=== PATIENT | male | born 1960 | race Hispanic/Latino ===

== ENCOUNTER 2023-07-18 20:51 | Inpatient (IN) | payer BC ==
[2023-07-18 21:41] LABS: #Eosinphils 0.1 thou/uL (0.0-0.7); #Monocytes 0.6 thou/uL (0.11-0.59); #Neutrophils 2.6 thou/uL (1.40-6.50); %Basophils 0.7 % (0.0-1.0); %Eosinophils 3.1 % (0.0-10.0); %Lymphocytes 26.4 % (21.0-51.0); %Monocytes 12.2 % (0.0-10.0); %Neutrophils 57.4 % (42.0-75.0); Hematocrit 36.2 % (42.0-52.0); Hemoglobin 12.6 g/dL (14.0-18.0); Mean Corpuscular HGB CONC 34.8 g/dL (32.0-36.0); Mean Corpuscular Hemoglobin 28.6 pg (27.0-31.0); Mean Corpuscular Volume 82.3 fl (78.0-98.0); Mean Platelet Volume 13.1 fL (7.4-10.4); Platelet Count 121 10x3/uL (130-400); RBC Distribution Width 12.7 % (11.5-14.5); White Blood Cell (WBC) Count 4.6 10x3/uL (4.8-10.8)
[2023-07-18 22:04] LABS: Anion Gap 14 mmol/L (10-20); BUN (Urea Nitrogen) 41 mg/dL (8.4-25.7); Calc. Creatinine Clearance 0 mL/min (70-130); Carbon Dioxide 24 mmol/L (23-31); Chloride 92 mmol/L (98-107); Sodium 125 mmol/L (136-145)
[2023-07-18 22:05] LABS: ALT (SGPT) 25 U/L (8-55); AST (SGOT) 18 U/L (5-34); Albumin 3.9 g/dL (3.4-4.8); Alkaline Phosphatase 117 U/L (40-110); Bilirubin, Total 0.4 mg/dL (0.2-1.2); Calcium 9.3 mg/dL (7.8-10.44); Estimated GFR 12; Protein, Total 5.9 g/dL (5.8-8.1)
[2023-07-18 22:11] LABS: Glucose 777 mg/dL (80-115)
[2023-07-18 22:56] LABS: Bacteria/HPF 3+ HPF (None Seen); Bilirubin Negative (Negative); Blood, Urine 3+ (Negative); CAUTI Indications for Culture Dysuria,urgency,freq; Clarity Clear (Clear); Glucose, Urine (Dipstick) Greater than 1000 mg/dL (Negative); Ketone, Urine Negative (Negative); Leukocyte Negative Leu/uL (Negative); Nitrite Negative (Negative); Protein, Urine (Dipstick) Negative (Neg-Trace); RBC/HPF 21-50 HPF (0-3); Specific Gravity, Urine 1.022 (1.002-1.036); Squamous Epithelial None Seen HPF (0-3); Urobilinogen Normal mg/dL (Less than 2); WBC/HPF 0-3 HPF (0-3); pH, Urine 6.5 (5.0-9.0)
[2023-07-18 22:57] LABS: Urine Culture Reflex No No
[2023-07-18] MEDS ORDERED: Sodium Chloride 0.9% 100 ML ONE (23:29)
[2023-07-18] MEDS ORDERED: Cefepime 2 GM VIAL ONE (23:29)
[2023-07-18 23:42] LABS: Actual Bicarbonate (HCO3v) 22.5 mEq/L (22-28); Base Excess -4.1 mEq/L (-2.0 to +3.0); Calcium, Ionized (venous) 1.16 mmol/L (1.16-1.32); Chloride (VBG) 96 mmol/L (98-106); Hematocrit-VBG 38 % (42.0-52.0); Hemoglobin (Hb) 12.8 g/dL (13.1-17.2); Potassium (VBG) 4.16 mmol/L (3.70-5.30); Sodium 128.4 mmol/L (133-146); pH (venous) 7.295 (7.32-7.43)
[2023-07-18] MEDS ORDERED: Sodium Chloride 0.9% 1,000 ML IV SCH (23:45)
[2023-07-18] MEDS ORDERED: Glucagon 1 MG/ML KIT IM PRN (23:54)
[2023-07-18] MEDS ORDERED: HumaLOG 300 UNITS/3 ML VIAL SC PRN (23:54)
[2023-07-18] MEDS ORDERED: Dextrose 5% in Water 1,000 ML IV PRN (23:54)
[2023-07-18] MEDS ORDERED: Dextrose 50% Abboject 50 ML SYRINGE SLOW IVP PRN (23:54)
[2023-07-18] MEDS ORDERED: Senokot S 8.6-50 MG TAB PO PRN (23:55)
[2023-07-18] MEDS ORDERED: Ondansetron ODT 4 MG TAB PO PRN (23:55)
[2023-07-18] MEDS ORDERED: Calcium Carbonate 500 MG ChewTAB PO PRN (23:55)
[2023-07-19 00:02] LABS: Anion Gap 11 mmol/L (10-20); BUN (Urea Nitrogen) 40 mg/dL (8.4-25.7); CK (CPK) 63 U/L (30-200); Calc. Creatinine Clearance 0 mL/min (70-130); Calcium 8.9 mg/dL (7.8-10.44); Carbon Dioxide 23 mmol/L (23-31); Chloride 98 mmol/L (98-107); Estimated GFR 13; Potassium 4.2 mmol/L (3.5-5.1); Sodium 128 mmol/L (136-145)
[2023-07-19 00:06] LABS: Troponin I Less than 0.010 ng/mL (< 0.028)
[2023-07-19 00:09] LABS: Glucose 639 mg/dL (80-115)
[2023-07-19] MEDS ORDERED: Insulin Regular 300 UNITS/3 ML VIAL IVP SCH (00:15)
[2023-07-19] MEDS ORDERED: Insulin Regular 300 UNITS/3 ML VIAL ONE (00:24)
[2023-07-19 00:42] LABS: Hemoglobin A1c Greater than 14.0 % (4.0-6.0)
[2023-07-19] MEDS ORDERED: Acetaminophen 500 MG TAB ONE (01:15)
[2023-07-19 02:51] VITALS: BMI 26.6
[2023-07-19 06:48] LABS: #Eosinphils 0.2 thou/uL (0.0-0.7); #Monocytes 0.5 thou/uL (0.11-0.59); #Neutrophils 2.3 thou/uL (1.40-6.50); %Basophils 0.7 % (0.0-1.0); %Eosinophils 3.4 % (0.0-10.0); %Lymphocytes 31.2 % (21.0-51.0); %Monocytes 11.2 % (0.0-10.0); Hematocrit 33.2 % (42.0-52.0); Hemoglobin 11.5 g/dL (14.0-18.0); Mean Corpuscular HGB CONC 34.6 g/dL (32.0-36.0); Mean Corpuscular Volume 83.8 fl (78.0-98.0); Mean Platelet Volume 12.7 fL (7.4-10.4); Platelet Count 126 10x3/uL (130-400); RBC Distribution Width 12.8 % (11.5-14.5); Red Blood Cell (RBC) Count 3.96 mill/uL (4.70-6.10); White Blood Cell (WBC) Count 4.4 10x3/uL (4.8-10.8)
[2023-07-19 07:20] LABS: Anion Gap 8 mmol/L (10-20); BUN (Urea Nitrogen) 32 mg/dL (8.4-25.7); Calc. Creatinine Clearance 23 mL/min (70-130); Calcium 8.9 mg/dL (7.8-10.44); Carbon Dioxide 24 mmol/L (23-31); Chloride 104 mmol/L (98-107); Estimated GFR 18; Glucose 173 mg/dL (80-115); Potassium 3.8 mmol/L (3.5-5.1); Sodium 132 mmol/L (136-145)
[2023-07-19] MEDS: Famotidine 20 MG TAB PO SCH (08:39)
[2023-07-19] MEDS: Tamsulosin HCl 0.4 MG CAP PO SCH (08:39)
[2023-07-19] MEDS ORDERED: Insulin Glargine 30 UNITS/0.3 ML VIAL SC SCH (09:00)
[2023-07-19] MEDS: HumaLOG 300 UNITS/3 ML VIAL SC PRN ×2 (11:36→16:47)
[2023-07-19] MEDS: Sodium Chloride 0.9% 1,000 ML IV SCH (16:24)
[2023-07-19] MEDS: Insulin Glargine 30 UNITS/0.3 ML VIAL SC SCH (20:56)
[2023-07-19] MEDS: Acetaminophen 325 MG TAB PO PRN (21:35)
[2023-07-20] MEDS: Sodium Chloride 0.9% 1,000 ML IV SCH ×2 (00:30→10:45)
[2023-07-20] MEDS: HumaLOG 300 UNITS/3 ML VIAL SC PRN ×3 (07:01→16:53)
[2023-07-20 07:53] LABS: Anion Gap 10 mmol/L (10-20); BUN (Urea Nitrogen) 14 mg/dL (8.4-25.7); Calc. Creatinine Clearance 56 mL/min (70-130); Calcium 9.1 mg/dL (7.8-10.44); Carbon Dioxide 22 mmol/L (23-31); Chloride 109 mmol/L (98-107); Estimated GFR 54; Glucose 218 mg/dL (80-115); Potassium 4.1 mmol/L (3.5-5.1); Sodium 137 mmol/L (136-145)
[2023-07-20 08:15] VITALS: BP 127/69; TEMP 98.6
[2023-07-20] MEDS: Acetaminophen 325 MG TAB PO PRN (08:56)
[2023-07-20] MEDS: Tamsulosin HCl 0.4 MG CAP PO SCH (08:56)
[2023-07-20] MEDS: Insulin Glargine 30 UNITS/0.3 ML VIAL SC SCH (08:57)
[2023-07-20] MEDS: Famotidine 20 MG TAB PO SCH (08:57)
[2023-07-20 10:28] LABS: Anion Gap 11 mmol/L (10-20); BUN (Urea Nitrogen) 13 mg/dL (8.4-25.7); Calc. Creatinine Clearance 63 mL/min (70-130); Calcium 9.4 mg/dL (7.8-10.44); Carbon Dioxide 22 mmol/L (23-31); Chloride 107 mmol/L (98-107); Estimated GFR 61; Glucose 304 mg/dL (80-115); Potassium 4.3 mmol/L (3.5-5.1); Sodium 136 mmol/L (136-145)
== END 2023-07-20 17:00 | disposition home or self-care (01) | DRG 642 ==
LOC: ERS 20:51 → T4-B 23:47
PROVIDERS: ADMIT Student in an Organized Health Care Education/Training Program; ATTEND Internal Medicine Critical Care Medicine
DX: E72.51 Non-ketotic hyperglycinemia (principal); N17.9 Acute kidney failure, unspecified; E87.20 Acidosis, unspecified; N18.4 Chronic kidney disease, stage 4 (severe); E11.65 Type 2 diabetes mellitus with hyperglycemia; E78.5 Hyperlipidemia, unspecified; N40.0 Benign prostatic hyperplasia without lower urinary tract symptoms; Z83.3 Family history of diabetes mellitus; Z79.4 Long term (current) use of insulin; Z79.899 Other long term (current) drug therapy; E11.22 Type 2 diabetes mellitus with diabetic chronic kidney disease; I12.9 Hypertensive chronic kidney disease with stage 1 through stage 4 chronic kidney disease, or unspecified chronic kidney disease; D63.1 Anemia in chronic kidney disease
CPT/HCPCS: 36415; 36416; 74176; 80048; 80053; 81001; 82010; 82550; 82805; 83036; 84484; 85025; 87086; 93005; 96361; 96365; 96375; J0692; J1815; J3490; J7050